=== PATIENT | female | born 1935 | race Caucasian/White ===

== ENCOUNTER 2016-12-25 14:53 | Emergency (ER) | payer MEDICARE, OTHER ==
--- NOTE | ~2016-12-25 | US85 ---
[facility] A Service [facility] RADIOLOGY TEXT RESULTS PATIENT: CONNIE JAMES LOCATION: SED : 37 UNIT #: [id number] AGE: [address]: ROB MCDONALD SEX: F ORDER DR: [id number] [place] [address] [id number] E MR#: [id number] Acc #: [id number] NAME: CONNIE JAMES. : 1935 SEX: F STUDY DATE/TIME: 12/25/2016 15:39 UNIT: SED ROOM: STUDY DESCRIPTION: LE Veins Unilat or Ltd Stdy Attending Physician: Rob Mcdonald Ordering Physician: Physician Non-Staff Primary Care Physician: Kristin Leahy M.D. MEDICAL IMAGING REPORT This report is preliminary unless electronic signature is present. EXAM Right leg vein Doppler on 12/25 INDICATIONS Right knee gave out 12/23/2016. Pain in the knee for 3 days. TECHNIQUE Venous ultrasound examination of the right lower extremity was performed using grayscale, spectral Doppler and color flow Doppler imaging. FINDINGS The examination is negative. There is no evidence of right lower extremity deep venous thrombus from the groin to the lower calf. Visualized greater saphenous vein is also patent. IMPRESSION Negative examination. No evidence of right lower extremity deep venous thrombosis. Dictated by... Donnie Ventura Jr., M.D. THIS IS AN ELECTRONICALLY VERIFIED REPORT Donnie Ventura Jr., M.D. at 12/26/2016 11:22 AM RLK/[place] TD: 12/25/2016 19:36 JOB #: [id number] [facility] A Service [facility] RADIOLOGY TEXT RESULTS PATIENT: CONNIE JAMES LOCATION: SED : 37 UNIT #: [id number] AGE: [address]: ROB MCDONALD SEX: F ORDER DR: MEDICAL IMAGING REPORT Page 1 of 1
--- NOTE | ~2016-12-25 | CR173 ---
[facility] A Service of [facility] RADIOLOGY TEXT RESULTS PATIENT: CONNIE JAMES LOCATION: SED : 37 UNIT #: [id number] AGE: [address]: PACHECO MCDONALD SEX: F ORDER DR: [id number] [address] [address] [id number] E MR#: [id number] Acc #: [id number] NAME: CONNIE JAMES. : 1935 SEX: F STUDY DATE/TIME: 12/25/2016 16:07 UNIT: SED ROOM: STUDY DESCRIPTION: CR Knee 3 Views Rt Ordering Physician: [facility] Primary Care Physician: Kristin Leahy M.D. MEDICAL IMAGING REPORT This report is preliminary unless electronic signature is present. EXAM Right knee HISTORY Right knee swelling with pain. Knee gave out on Sunday. COMPARISON STUDIES 04/08/2013. FINDINGS AP and cross-table lateral views of the right knee were obtained. There is degenerative spurring from the medial tibial plateau and medial femoral condyle. There is no fracture identified. There is also sunrise views. IMPRESSION Medial joint degenerative change, stable. No acute abnormality. Dictated by... Maxime Teran M.D. THIS IS AN ELECTRONICALLY VERIFIED REPORT Maxime Teran M.D. at 12/26/2016 6:07 AM FEL/pcl TD: 12/25/2016 20:58 JOB #: [id number] MEDICAL IMAGING REPORT Page 1 of 1
[~2016-12-25 14:53] MED LIST: ALPRAZOLAM PO; AMBIEN CR PO; ANEXSIA 5/325 M1 TA1 PO; ANUSOL-HC CREAM30 G1 EXT; ASPIRIN PO; ATENOLOL PO; BALANCED B11 S; CELEXA PO; CIPRO PO; CLARITIN10 M2 PO; COLACE PO; DICLOXAXILLIN250 MG PO; FLAGYL PO; HCTZ PO; LASIX PO; LIDODERM30 EA TOP; NEXIUM PO; SYNTHROID PO; VICODIN 5/500 T1 TAB PO; VITAMIN D50000 UNIT PO; XANAX1 MG PO; [UNRECOGNIZED DRUG - OTHER] PO
[2016-12-25] MEDS ORDERED: POTASSIUM CHLO10 MEQ PO (15:04)
[2016-12-25] MEDS ORDERED: MOVANTIK25 MG PO (15:05)
[2016-12-25] MEDS ORDERED: FUROSEMIDE40 MG PO (15:05)
[2016-12-25] MEDS ORDERED: LINZESS145 MCG PO (15:05)
== END 2016-12-25 17:12 | disposition home or self-care (01) ==
LOC: SED 14:53
DX: S83.91XA Sprain of unspecified site of right knee, initial encounter (principal); Z87.442 Personal history of urinary calculi; I10 Essential (primary) hypertension; Z88.0 Allergy status to penicillin; Z79.899 Other long term (current) drug therapy; X50.9XXA Other and unspecified overexertion or strenuous movements or postures, initial encounter
CPT/HCPCS: 29505; 73562; 93971; 99284